=== PATIENT | male | born 1990 | race Caucasian/White ===

== ENCOUNTER 2017-10-26 04:21 | Emergency (ER) | payer MEDICAID ==
[2017-10-26] MEDS ORDERED: Naproxen 550 mg Tab PO STA (05:29)
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
[2017-10-26] MEDS ORDERED: Naproxen 550 mg Tab PO ONE (05:39)
[2017-10-26 09:08] LABS: BASO % 0.2 % (0.0-2.0); EOS # 0.1 K/uL (0.0-0.7); EOS % 0.7 % (0.0-4.0); HEMOGLOBIN 14.2 g/dL (12.0-18.0); LYMPH # 2.2 K/uL (1.0-4.3); LYMPH % 14.1 % (20.0-40.0); MEAN CELL VOLUME 85.2 fL (80.0-94.0); MEAN CORPUSCULAR HEMOGLOBIN 29.6 pg (27.0-31.0); MEAN CORPUSCULAR HGB CONC 34.8 g/dL (33.0-37.0); MEAN PLATELET VOLUME 8.6 fL (7.2-11.7); MONO % 6.4 % (0.0-10.0); NEUT # 12.3 K/uL (1.8-7.0); NEUT % 78.6 % (50.0-75.0); RBC 4.79 Mil/uL (4.40-5.90); RED CELL DISTRIBUTION WIDTH 13.5 % (11.5-14.5); WHITE BLOOD COUNT 15.6 K/uL (4.8-10.8)
[2017-10-26 09:15] LABS: ALB/GLOB RATIO 1.3 (1.0-2.1); ALBUMIN 3.9 g/dL (3.5-5.0); ALT/SGPT 26 U/L (21-72); AST/SGOT 33 U/L (17-59); BLOOD UREA NITROGEN 13 mg/dL (9-20); GFR AFRICAN-AMERICAN > 60; GFR NON-AFRICAN AMERICAN > 60
[2017-10-26 09:23] LABS: SQUAMOUS EPITHIAL < 1 /hpf (0-5); URINE BILIRUBIN NEGATIVE (NEGATIVE); URINE BLOOD NEGATIVE (NEGATIVE); URINE CLARITY Clear (Clear); URINE COLOR Yellow (YELLOW); URINE GLUCOSE (UA) NORMAL (Normal); URINE LEUKOCYTE ESTERASE NEG Leu/uL (Negative); URINE PROTEIN NEGATIVE (NEGATIVE); URINE UROBILINOGEN NORMAL mg/dL (0.2-1.0)
[2017-10-26 09:41] LABS: BARBITURATES, UR NEGATIVE (NEGATIVE); BENZODIAZEPINES, UR NEGATIVE (NEGATIVE); OPIATES, UR NEGATIVE (NEGATIVE)
[2017-10-26 09:42] LABS: PHENCYCLIDINE, UR POSITIVE (NEGATIVE)
--- NOTE | 2017-10-26 11:59 | RAD ---
HISTORY: Psych admission. COMPARISON: No prior. FINDINGS: Study is limited due to patient rotation to the left study is further. LUNGS: Poor inspiration with low lung volumes, crowded bronchovascular markings and mild bibasilar atelectasis. PLEURA: No significant pleural effusion identified, no pneumothorax apparent. CARDIOVASCULAR: Normal. OSSEOUS STRUCTURES: No significant abnormalities. VISUALIZED UPPER ABDOMEN: Normal. OTHER FINDINGS: None. IMPRESSION: Limited study due to patient rotation and poor inspiration the latter of which results in low lung volumes, crowded bronchovascular markings and bibasilar atelectasis.
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
[2017-10-26] MEDS ORDERED: Divalproex 500 mg DR Tab PO ONE (13:17)
[2017-10-26] MEDS: Divalproex 500 mg DR Tab PO SCH ×2 (13:27→19:23)
[2017-10-26 19:00] VITALS: BP 120/62; PULSE 73; RESP 16; TEMP 98.4; O2SAT 97
--- NOTE | 2017-10-27 12:51 | CARD ---
APPROVED REPORT EKG Measurement Heart [id number] <Conclusion> Normal sinus rhythm with sinus arrhythmia Nonspecific T wave abnormality Abnormal ECG
== END 2017-10-26 19:10 | disposition home or self-care (01) ==
LOC: C.ER 04:21
DX: R45.6 Violent behavior (principal); S90.821D Blister (nonthermal), right foot, subsequent encounter; X58.XXXD Exposure to other specified factors, subsequent encounter; M79.671 Pain in right foot; F31.64 Bipolar disorder, current episode mixed, severe, with psychotic features; E11.9 Type 2 diabetes mellitus without complications
CPT/HCPCS: 71045; 80053; 80320; 80324; 80345; 80346; 80349; 80353; 80358; 80361; 81001; 83992; 85025; 93005; 96372; 99285; J2060; J3486

== ENCOUNTER 2018-05-01 06:53 | Inpatient (IN) | payer MEDICAID ==
[2018-05-01 06:54] VITALS: BMI 30.3
--- NOTE | 2018-05-01 07:55 | C.PDOC ---
History Of Present Illness 27 y/o male, with PMHx, of bipolar disorder, presents to ED for evaluation of hearing voices. Pt states voices are telling him that "people are after me", and are also telling him to hurt himself. Pt would not provide a clear answer if he is using any street drugs. Pt is non-compliant with his meds. Otherwise, denies chest pain, shortness of breath, abdominal pain, or any physical complaints at this time. Time Seen by Provider: 05/01/18 07:09 Chief Complaint (Nursing): Psychiatric Evaluation History Per: Patient History/Exam Limitations: no limitations Onset/Duration Of Symptoms: Days Current Symptoms Are (Timing): Still Present Severity: None Pain Scale Rating Of: 0 Recent travel outside of the [place]: No Additional History Per: Patient Past Medical History Reviewed: Historical Data, Nursing Documentation, Vital Signs Vital Signs: Last Vital Signs Temp 98.2 F 05/01/18 07:10 Pulse 86 05/01/18 07:10 Resp 20 05/01/18 07:10 BP 135/82 05/01/18 07:10 Pulse Ox 98 05/01/18 07:10 - Medical History PMH: Bipolar Disorder, Depression, Diabetes, Schizophrenia Denies: Hepatitis, HIV, HTN, Seizures, Sexually Transmitted Disease - [facility] Procedures INDIVID PSYCHOTHERAP NEC (05/07/13) OTHER GROUP THERAPY (05/07/13) PSYCHIA INTERV/EVAL NEC (05/06/13) Family History: States: Unknown Family Hx Denies: [place] - Social History Hx Alcohol Use: No Hx Substance Use: Yes - Immunization History Hx Tetanus Toxoid Vaccination: No Hx Influenza Vaccination: No Hx Pneumococcal Vaccination: No Review Of Systems Constitutional: Negative for: Fever, Chills Cardiovascular: Negative for: Chest Pain, Palpitations Respiratory: Negative for: Cough, Shortness of Breath Gastrointestinal: Negative for: Nausea, Vomiting, Abdominal Pain Neurological: Negative for: Headache, Dizziness Psych: Positive for: Other (hearing voices) Physical Exam - Physical Exam Appears: Non-toxic, No Acute Distress Skin: Normal Color, Warm, Dry Head: Atraumatic, Normacephalic Eye(s): bilateral: Normal Inspection Oral Mucosa: Moist Neck: Normal ROM, Supple Cardiovascular: Rhythm Regular, No Murmur Respiratory: Normal Breath Sounds, No Rales, No Rhonchi, No Wheezing Gastrointestinal/Abdominal: Soft, No Tenderness Extremity: Normal ROM Neurological/Psych: Oriented x3, Normal Speech ED Course And Treatment - Laboratory Results Result Diagrams: 05/01/18 07:51 05/01/18 07:51 O2 Sat by Pulse Oximetry: 98 (on RA) Pulse Ox Interpretation: Normal Medical Decision Making Medical Decision Making: Plan: Blood work Urinalysis Crisis evaluation 1029 pt is medically cleared for psychiatric disposition. 1043 ot accepted for admission to psychiatry Dr Jones. Disposition Discussed With Dr.: Francine Padron Doctor Will See Patient In The: Hospital - Disposition Disposition: HOSPITALIZED Disposition Time: 10:45 Condition: STABLE Forms: [employer] (Salvadorean) - Clinical Impression Clinical Impression: Bipolar disorder - PA / TAX COMPLIANCE REPRESENTATIVE / Resident Statement MD/DO has reviewed & agrees with the documentation as recorded. - Scribe Statement The provider has reviewed the documentation as recorded by the Scribe KP All medical record entries made by the Scribe were at my direction and personally dictated by me. I have reviewed the chart and agree that the record accurately reflects my personal performance of the history, physical exam, medical decision making, and the department course for this patient. I have also personally directed, reviewed, and agree with the discharge instructions and disposition.
[2018-05-01 08:02] LABS: URINE BILIRUBIN NEGATIVE (NEGATIVE); URINE BLOOD NEGATIVE (NEGATIVE); URINE CLARITY Clear (Clear); URINE COLOR Yellow (YELLOW); URINE GLUCOSE (UA) NORMAL (Normal); URINE LEUKOCYTE ESTERASE NEG Leu/uL (Negative); URINE PROTEIN NEGATIVE (NEGATIVE)
[2018-05-01 08:11] LABS: ALB/GLOB RATIO 1.7 (1.0-2.1); ALBUMIN 4.2 g/dL (3.5-5.0); ALT/SGPT 34 U/L (21-72); AST/SGOT 41 U/L (17-59); BLOOD UREA NITROGEN 21 mg/dL (9-20); CALCIUM 9.3 mg/dl (8.6-10.4); GFR NON-AFRICAN AMERICAN > 60
[2018-05-01 08:21] LABS: BARBITURATES, UR NEGATIVE (NEGATIVE); BENZODIAZEPINES, UR NEGATIVE (NEGATIVE); OPIATES, UR NEGATIVE (NEGATIVE); PHENCYCLIDINE, UR NEGATIVE (NEGATIVE)
[2018-05-01 08:47] LABS: BASO # 0.1 K/uL (0.0-0.2); BASO % 0.6 % (0.0-2.0); EOS # 0.1 K/uL (0.0-0.7); EOS % 1.1 % (0.0-4.0); LYMPH # 2.5 K/uL (1.0-4.3); LYMPH % 20.4 % (20.0-40.0); MEAN CELL VOLUME 86.1 fL (80.0-94.0); MEAN CORPUSCULAR HEMOGLOBIN 29.5 pg (27.0-31.0); MEAN CORPUSCULAR HGB CONC 34.2 g/dL (33.0-37.0); MEAN PLATELET VOLUME 8.2 fL (7.2-11.7); MONO # 0.7 K/uL (0.0-0.8); MONO % 5.4 % (0.0-10.0); NEUT # 8.9 K/uL (1.8-7.0); NEUT % 72.5 % (50.0-75.0); NRBC % 0.2 % (0.0-2.0); RBC 4.74 Mil/uL (4.40-5.90); RED CELL DISTRIBUTION WIDTH 14.3 % (11.5-14.5); WHITE BLOOD COUNT 12.3 K/uL (4.8-10.8)
[2018-05-01 10:46] VITALS: O2SAT 98
--- NOTE | 2018-05-01 11:22 | PCM.BM ---
Treatment Plan Problems - Problems identified on initial assessmt Bipolar Date Initiated: 05/01/18 Time Initiated: :19 Assessment reference: NA Status: Active Treatment assets and liabiliti Patient Assests: ADL independent, physically healthy, negotiates basic needs Patient Liabilities: poor support system - Milieu Protocol Maintain good personal hygiene: daily Encourage regular showers, daily Remind patient to perform daily oral care, daily Assist patient to perform ADL's Conduct patient checks and document Observation sheet: Q15 minutes Maintain personal safety: every shift Educate patient to report safety concerns to staff, every shift Monitor environment for contraband/sharps Medication safety: Monitor for expected outcome, potential side effects: every shift, Assess barriers to learning: every shift, Assess readiness for medication education: every shift
[2018-05-01 14:45] VITALS: RESP 20
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
[2018-05-02] MEDS: Divalproex 500 mg DR Tab PO SCH (21:52)
--- NOTE | 2018-05-02 21:55 | PCM.PSYCH ---
Initial Psychiatric Evaluation - Initial Psychiatric Evaluation Type of Admission: Voluntary Legal Status: Capacity Chief Complaint (in patient's own words): LEAVE ME ALONE Current Medications: Active Medications Generic Name Dose Route Start Last Admin Trade Name Freq PRN Reason Stop Dose Admin Divalproex Sodium 500 mg 05/02/18 21:[address] PO BID KORIN Haloperidol 5 mg 05/02/18 21:07 Haldol PO Q1H PRN agitation max 4x/24h Haloperidol Lactate 5 mg 05/02/18 21:10 Haldol IM Q2H PRN severe agitation Ibuprofen 600 mg 05/01/18 19:21 05/01/18 21:39 Motrin Tab PO 600 mg Q6 PRN Administration Pain, moderate (4-7) Influenza Virus Vaccine 60 mcg 05/05/18 10:00 Fluzone Quad [id number] IM 05/05/18 10:01 .ONCE ONE Lorazepam 2 mg 05/02/18 20:59 Ativan IM Q6H PRN Anxiety Lorazepam 2 mg 05/02/18 21:08 Ativan PO Q4H PRN aggression Pneumococcal Polyvalent Vaccine 0.5 ml 05/05/18 10:00 Pneumovax 23 Vaccine IM 05/05/18 10:01 .ONCE ONE Quetiapine Fumarate 100 mg 05/01/18 22:00 05/01/18 21:40 Seroquel PO 100 mg HS KORIN Administration Quetiapine Fumarate 200 mg 05/02/18 22:00 Seroquel PO HS KORIN Trazodone HCl 50 mg 05/01/18 22:00 05/01/18 21:39 Desyrel PO 50 mg HS KORIN Administration Trazodone HCl 100 mg 05/02/18 22:00 Desyrel PO HS KORIN Ziprasidone 20 mg 05/02/18 21:09 Geodon Inj IM Q12 PRN severe aggression Past Psychiatric History - Past Psychiatric History Pertinent Medical Hx (Current Medical&Sleep Prob, Allergies): Allergies Allergy/AdvReac Type Severity Reaction Status Date / Time Penicillins Allergy RASH Verified 12/06/17 09:13 Citalopram Hydrobromide [Celexa] 20 mg PO DAILY 09/26/17 Quetiapine Fumarate [Seroquel] 300 mg PO BID 09/26/17 traZODone 05/01/18
[2018-05-03] MEDS: Divalproex 500 mg DR Tab PO SCH ×2 (09:50→17:17)
--- NOTE | 2018-05-03 11:31 | PCM.PYCHPN ---
Psychiatric Progress Note - Psychiatric Progress Note Patient seen today, length of contact: 15 min Patient Chief Complaint: danish.' Problems Identified/Issues Discussed: Patient seen and evaluated, chart reviewed and discussed with the nurse. Pt reports irritability and agitation. Pt remained disorganized and internally preoccupied. He remained isolated and withdrawn, and confined to his room. He denies any auditory hallucinations, visual hallucinations, or any paranoia. Patient is compliant with medications and denies any side effects. Symptoms are improving but pt needs more time to stabilize. Support and psychoeducation given Medication Change: Yes Medical Record Reviewed: Yes Mental Status Examination - Cognitive Function Orientation: Person, Place, Situation, Time Memory: Intact Attention: Poor Concentration: Poor Association: Loose Fund of Knowledge: Poor - Mood Mood: Anxious - Affect Affect: Broad - Speech Speech: Pressured - Formal Thought Process Formal Thought Process: Delusions, Paranoia, Loosening of associations, Flight of ideas - Suicidal Ideation Suicidal Ideation: No - Homicidal Ideation Homicidal Ideation: Yes Goal/Treatment Plan - Goal/Treatment Plan Need for Continued Stay: Discharge may exacerbated symptoms, Severe functional impairment Progress Toward Problem(s) and Goals/Treatment Plan: Schizoaffective disorder bipolar type CBT Psychoeducation Supportive therapy, group therapy, individual therapy Haldol 5 mg by mouth prn Hydroxyzine 25 mg by mouth every 6 hours when necessary Klonopin 1 mg PO TID prn Seroquel 200 mg PO daily Seroquel 300 mg PO QHS Depakote 500 mg by mouth twice a day Cocaine use disorder severe Monitor signs and symptoms Use PA for abstinence Cannabis use disorder severe Monitor signs and symptoms Use PA for abstinence Pt was screened and accepted by the [facility] [place] [place] - Smoking Cessation Smoking Cessation Initiated: No
[2018-05-04] MEDS: Divalproex 500 mg DR Tab PO SCH ×3 (09:01→17:30)
--- NOTE | 2018-05-05 02:04 | PCM.PYCHPN ---
Psychiatric Progress Note - Psychiatric Progress Note Patient seen today, length of contact: 15 min Patient Chief Complaint: danish.' Problems Identified/Issues Discussed: Patient seen and evaluated, chart reviewed and discussed with the nurse. Pt reports irritability and agitation. Pt remained disorganized and internally preoccupied. He remained isolated and withdrawn, and confined to his room. He denies any auditory hallucinations, visual hallucinations, or any paranoia. Patient is compliant with medications and denies any side effects. Symptoms are improving but pt needs more time to stabilize. Support and psychoeducation given Medication Change: Yes Medical Record Reviewed: Yes Mental Status Examination - Cognitive Function Orientation: Person, Place, Situation, Time Memory: Intact Attention: Poor Concentration: Poor Association: Loose Fund of Knowledge: Poor - Mood Mood: Anxious - Affect Affect: Broad - Speech Speech: Pressured - Formal Thought Process Formal Thought Process: Delusions, Paranoia, Loosening of associations, Flight of ideas - Suicidal Ideation Suicidal Ideation: No - Homicidal Ideation Homicidal Ideation: Yes Goal/Treatment Plan - Goal/Treatment Plan Need for Continued Stay: Discharge may exacerbated symptoms, Severe functional impairment Progress Toward Problem(s) and Goals/Treatment Plan: Schizoaffective disorder bipolar type CBT Psychoeducation Supportive therapy, group therapy, individual therapy Haldol 5 mg by mouth prn Hydroxyzine 25 mg by mouth every 6 hours when necessary Klonopin 1 mg PO TID prn Seroquel 200 mg PO daily Seroquel 300 mg PO QHS Depakote 500 mg by mouth twice a day Cocaine use disorder severe Monitor signs and symptoms Use DC for abstinence Cannabis use disorder severe Monitor signs and symptoms Use DC for abstinence Pt was screened and accepted by the [facility]
[2018-05-05] MEDS: Divalproex 500 mg DR Tab PO SCH ×2 (09:20→18:51)
[2018-05-05] MEDS ORDERED: Pneumococcal 23-Valent Vaccine IM ONE (10:00)
[2018-05-05] MEDS ORDERED: Influenza Vaccine 60 MCG/0.5 ML SYR (3 yr & up) IM ONE (10:00)
--- NOTE | 2018-05-05 10:29 | PCM.PYCHPN ---
Psychiatric Progress Note - Psychiatric Progress Note Patient seen today, length of contact: 15 min Patient Chief Complaint: danish.' Problems Identified/Issues Discussed: Patient seen and evaluated, chart reviewed and discussed with the nurse. Pt reports irritability and agitation. Pt remained disorganized and internally preoccupied. He remained isolated and withdrawn, and confined to his room. He denies any auditory hallucinations, visual hallucinations, or any paranoia. Patient is compliant with medications and denies any side effects. Symptoms are improving but pt needs more time to stabilize. Support and psychoeducation given Medication Change: Yes Medical Record Reviewed: Yes Mental Status Examination - Cognitive Function Orientation: Person, Place, Situation, Time Memory: Intact Attention: Poor Concentration: Poor Association: Loose Fund of Knowledge: Poor - Mood Mood: Anxious - Affect Affect: Broad - Speech Speech: Pressured - Formal Thought Process Formal Thought Process: Delusions, Paranoia, Loosening of associations, Flight of ideas - Suicidal Ideation Suicidal Ideation: No - Homicidal Ideation Homicidal Ideation: Yes Goal/Treatment Plan - Goal/Treatment Plan Need for Continued Stay: Discharge may exacerbated symptoms, Severe functional impairment Progress Toward Problem(s) and Goals/Treatment Plan: Schizoaffective disorder bipolar type CBT Psychoeducation Supportive therapy, group therapy, individual therapy Haldol 5 mg by mouth prn Hydroxyzine 25 mg by mouth every 6 hours when necessary Klonopin 1 mg PO TID prn Seroquel 200 mg PO daily Seroquel 300 mg PO QHS Depakote 500 mg by mouth twice a day Cocaine use disorder severe Monitor signs and symptoms Use OR for abstinence Cannabis use disorder severe Monitor signs and symptoms Use OR for abstinence Pt was screened and accepted by the [facility] [place]
[2018-05-05 15:53] VITALS: BP 105/62; PULSE 90; TEMP 98
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
== END 2018-05-05 20:52 ==
LOC: C.ER 06:53 → C.5E 10:46
PROVIDERS: ADMIT Psychiatry & Neurology Psychiatry; ATTEND Psychiatry & Neurology Psychiatry
PROC: GZHZZZZ Group Psychotherapy (ICD-10-PCS; principal; 2018-05-01)
PROC: GZ58ZZZ Individual Psychotherapy, Cognitive-Behavioral (ICD-10-PCS; 2018-05-01)
PROC: GZ56ZZZ Individual Psychotherapy, Supportive (ICD-10-PCS; 2018-05-01)
DX: F25.0 Schizoaffective disorder, bipolar type (principal); F14.20 Cocaine dependence, uncomplicated; E11.9 Type 2 diabetes mellitus without complications; F32.9 Major depressive disorder, single episode, unspecified; F12.20 Cannabis dependence, uncomplicated; Z79.899 Other long term (current) drug therapy; Z91.14 Patient's other noncompliance with medication regimen